=== PATIENT | female | born 1980 | race Caucasian/White ===

== ENCOUNTER 2016-08-09 23:53 | Emergency (ER) | payer OTHER | END 2016-08-10 01:55 | disposition left against medical advice (07) | LOC: ER1 23:53 | DX: Z53.21 Procedure and treatment not carried out due to patient leaving prior to being seen by health care provider (principal) ==

== ENCOUNTER 2021-12-01 15:02 | Emergency (ER) | payer OTHER ==
[~2021-12-01] VITALS: Ht 165.1 cm; Wt 100.7 kg
[~2021-12-01 15:02] MED LIST: LODINE CAP 300300 MG PO; ZOFRAN ODT 4 MG4 MG SL
[2021-12-01 16:44] LABS: HEMOGLOBIN 12.8 gm/dl (12.3-15.3); RED BLOOD COUNT 4.92 M/UL (4.00-5.10)
[2021-12-01 17:08] LABS: BUN/CREATININE RATIO 7 (0-10)
== END 2021-12-01 19:56 | disposition home or self-care (01) ==
LOC: ER1 15:02
PROVIDERS: Emergency Medicine
DX: U07.1 COVID-19 (principal); D64.9 Anemia, unspecified; Z85.820 Personal history of malignant melanoma of skin
CPT/HCPCS: 0240U; 71045; 80053; 81001; 82550; 82553; 83605; 84484; 84703; 85025; 87040; 87081; 87880; 93005; 96374; 99284; J2405; M0222

== ENCOUNTER → 2021-12-06 | Outpatient (CLI) | payer OTHER ==
[2021-12-06 16:22] LABS: BUN/CREATININE RATIO 8 (0-10)
== END ==
LOC: CT 14:55
PROVIDERS: Internal Medicine
DX: R07.9 Chest pain, unspecified (principal); D50.0 Iron deficiency anemia secondary to blood loss (chronic); D64.9 Anemia, unspecified; E28.2 Polycystic ovarian syndrome; B96.89 Other specified bacterial agents as the cause of diseases classified elsewhere
CPT/HCPCS: 36415; 71275; 80053; Q9967

== ENCOUNTER → 2021-12-07 | Outpatient (CLI) | payer OTHER | LOC: OPSV 14:30 | DX: E86.0 Dehydration (principal); R07.9 Chest pain, unspecified | CPT/HCPCS: 96360 ==